=== PATIENT | female | born 1985 | race Caucasian/White ===

== ENCOUNTER 2017-04-01 23:58 | Emergency (ER) | payer OTHER ==
[~2017-04-01] VITALS: Ht 165.1 cm; Wt 54.4 kg
[2017-04-02 02:12] VITALS: BP 122/81
[2017-04-02 03:29] LABS: APPEARANCE,URINE CLEAR; BASOPHILS % (AUTO) 0.8 % (0.0-2.0); EOSINOPHILS % (AUTO) 0.6 % (0.0-3.0); KETONES,URINE NEGATIVE (NEGATIVE); LEUKOCYTE ESTERASE ,URINE 1+ (NEGATIVE); LYMPHOCYTES % (AUTO) 25.3 % (20.0-45.0); MEAN CORPUSCULAR HGB CONC 36.2 G/DL (32.0-36.0); MEAN CORPUSCULAR VOLUME 91 FL (80-99); MEAN PLATELET VOLUME 9.4 FL (6.5-10.1); MONOCYTES % (AUTO) 7.5 % (1.0-10.0); NEUTROPHILS % (AUTO) 65.8 % (45.0-75.0); NITRITE,URINE NEGATIVE (NEGATIVE); PH,URINE 6 (4.5-8.0); PLATELET COUNT 202 K/UL (150-450); PROTEIN,URINE NEGATIVE (NEGATIVE); RED BLOOD COUNT 4.47 M/UL (4.20-5.40); RED CELL DISTRIBUTION WIDTH 10.5 % (11.6-14.8); UROBILINOGEN,URINE NORMAL MG/DL (0.0-1.0); WHITE BLOOD COUNT 13.1 K/UL (4.8-10.8)
[2017-04-02 03:37] LABS: SQUAMOUS EPITHELIAL CELL,UR MODERATE /LPF (NONE/OCC); WBC,URINE 0-2 /HPF (0 - 2)
[2017-04-02 03:38] LABS: BACTERIA,URINE MODERATE /HPF
[2017-04-02 03:46] LABS: ALANINE AMINOTRANSFERASE 19 U/L (12-78); ALBUMIN/GLOBULIN RATIO 1.1 (1.0-2.7); ANION GAP 9 (5-15); ASPARTATE AMINO TRANSFERASE 19 U/L (15-37); CALCIUM 9.1 MG/DL (8.5-10.1); CARBON DIOXIDE 24 MMOL/L (21-32); CHLORIDE 106 MMOL/L (98-107); CREATININE 0.7 MG/DL (0.55-1.30); GLOMERULAR FILTRATION RATE > 60 mL/min (>60); LIPASE 183 U/L (73-393); SODIUM 139 MMOL/L (136-145); TOTAL PROTEIN 6.9 G/DL (6.4-8.2)
[2017-04-02] MEDS ORDERED: PREPARATION H C26 GM RC (04:13)
[2017-04-02] MEDS ORDERED: PEPCID40 MG PO (04:13)
[2017-04-02] MEDS ORDERED: BENTYL10 MG ORAL (04:13)
[2017-04-02 04:20] VITALS: BP 120/88
[2017-04-02 04:22] VITALS: BP 120/88
--- NOTE | 2017-04-02 05:03 | Emergency Room Report ---
History of Present Illness General Chief Complaint: General Complaint Source: Patient Present Illness HPI [id number] presents with 2 weeks intermittent stomach cramps, intermittent diarrhea/ change in stool caliber C/o rectal irritation after diarrhea Took picture that shows irritated rectum No history of hemorrhoids, anal fissure No foreign travel No history of IBD No previous abd surgery Allergies: Coded Allergies: No Known Allergies (Unverified , 04/02/17) Patient History Past Medical History: none Past Surgical History: none Pertinent Family History: none Social History: Denies: smoking, alcohol use, drug use Last Menstrual Period: first week of mar Now: No Immunizations: UTD Reviewed Nursing Documentation: PMH: Agreed, PSxH: Agreed Nursing Documentation-PMH Past Medical History: No Stated History Review of Systems All Other Systems: negative except mentioned in HPI Physical Exam Vital Signs Date Time Temp Pulse Resp B/P (MAP) Pulse Ox O2 Delivery O2 Flow Rate FiO2 04/02/17 00:11 98.1 84 18 122/81 98 Room Air Sp02 EP Interpretation: reviewed, normal General Appearance: normal inspection, well appearing, no apparent distress, alert, GCS 15, non-toxic Head: normocephalic, atraumatic Eyes: bilateral eye PERRL, bilateral eye EOMI ENT: normal ENT inspection, hearing grossly normal, normal voice Neck: normal inspection, full range of motion, supple, no bony tend Respiratory: normal inspection, lungs clear, normal breath sounds, no respiratory distress, no retraction, no wheezing Cardiovascular #1: regular rate, rhythm, no edema Gastrointestinal: normal inspection, normal bowel sounds, non tender, soft, no guarding, no hernia Rectal: normal exam, normal rectal tone, other - no fissure, no hemorrhoids Genitourinary: no CVA tenderness Musculoskeletal: normal inspection, back normal, normal range of motion, Schuyler' s Sign negative Neurologic: normal inspection, alert, oriented x3, responsive, speech normal Psychiatric: normal inspection, judgement/insight normal, mood/affect normal Skin: normal inspection, normal color, no rash Lymphatic: normal inspection Medical Decision Making Diagnostic Impression: Primary Impression: Rectal irritation Additional Impression: Viral gastroenteritis ER Course Not UA likely contaminated given squams. No WBCs. Mild leuks likely reactionary from diarrhea, viral gastroenteritis No abnormal LFTs. Lipase normal H&H stable ?intermittent hemorrhoids Rx Pepcid/bentyl for diarrhe Rx Prep-H as needed for rectal irritation Last Vital Signs Date Time Temp Pulse Resp B/P (MAP) Pulse Ox O2 Delivery O2 Flow Rate FiO2 04/02/17 04:22 98.1 74 18 120/88 98 Room Air Status: improved Disposition: HOME, SELF-CARE Condition: Improved Scripts Phenyleph/Pramoxin/Glycr/W.pet (PREPARATION H CREAM) 26 Gm Cream..g. 26 GM RC TID for rectal pain for 7 Days, GM Prov: ANURADHA WIGGINS M.D. 04/02/17 Dicyclomine Hcl* (BENTYL*) 10 Mg Capsule 10 MG ORAL BID for diarrhea for 7 Days, #14 CAP Prov: ANURADHA WIGGINS M.D. 04/02/17 Famotidine (PEPCID) 40 Mg Tablet 40 MG PO DAILY for 7 Days, #7 TAB 0 Refills Prov: ANURADHA WIGGINS M.D. 04/02/17 Patient Instructions: Viral Gastroenteritis, Adult, [id number], Hemorrhoids, [id number] Additional Instructions: - Apply preparation H to rectum as needed for rectal irritation - Take pepcid once daily for 1 week and bentyl as needed for diarrhea ANURADHA WIGGINS M.D. Apr 02, 2017 05:03
== END 2017-04-02 04:24 | disposition home or self-care (01) ==
LOC: EMR 04-02 00:35
DX: K62.89 Other specified diseases of anus and rectum (principal); A08.4 Viral intestinal infection, unspecified
CPT/HCPCS: 36415; 80053; 81003; 81025; 83690; 85025; 87086; 99284